=== PATIENT | female | born 2000 | race Caucasian/White ===

== ENCOUNTER 2020-12-19 17:00 | Inpatient (IN) | payer MEDICAID ==
[~2020-12-19] VITALS: Ht 160 cm; Wt 78.1 kg
[2020-12-20] VITALS (57 sets, daily range): BP systolic 80–127; BP diastolic 41–90
[2020-12-20] MEDS ORDERED: MINERAL OIL CONCENTRATE 99.9% 15 ML UDC TOP PRN (06:45)
[2020-12-20] MEDS ORDERED: OXYTOCIN PRE-MIX DRIP 500 ML IV SCH (06:45)
[2020-12-20 06:55] LABS: BILIRUBIN,URINE NEGATIVE (NEGATIVE); CLARITY,URINE SL CLOUDY; COLOR,URINE YELLOW; GLUCOSE, URINE (UA) NEGATIVE (NEGATIVE); KETONES,URINE NEGATIVE (NEGATIVE); LEUKOCYTE ESTERASE ,URINE TRACE (NEGATIVE); NITRITE,URINE NEGATIVE (NEGATIVE); PROTEIN,URINE NEGATIVE (NEGATIVE)
[2020-12-20 06:56] LABS: BASOPHILS % (AUTO) 0 % (0-10); EOSINOPHILS # (AUTO) 0.1 10^3/uL (0.0-0.3); EOSINOPHILS % (AUTO) 1 % (0-10); HEMATOCRIT 35 % (35-52); HEMOGLOBIN 11.6 g/dL (11.5-16.0); LYMPHOCYTES # (AUTO) 2.1 10^3/uL (1.0-4.0); LYMPHOCYTES % (AUTO) 21 % (12-44); MEAN CORPUSCULAR HEMOGLOBIN 29 pg (25-34); MEAN CORPUSCULAR HGB CONC 34 g/dL (32-36); MEAN CORPUSCULAR VOLUME 86 fL (80-99); MEAN PLATELET VOLUME 10.5 fL (9.0-12.2); MONOCYTES # (AUTO) 0.7 10^3/uL (0.0-1.0); MONOCYTES % (AUTO) 6 % (0-12); NEUTROPHILS # (AUTO) 7.3 10^3/uL (1.8-7.8); NEUTROPHILS % (AUTO) 71 % (42-75); PLATELET COUNT 236 10^3/uL (130-400); WHITE BLOOD COUNT 10.2 10^3/uL (4.3-11.0)
[2020-12-20 07:10] LABS: BACTERIA,URINE LARGE /HPF; RBC,URINE 0-2 /HPF
[2020-12-20] MEDS ORDERED: PREN1TAB79 PO (07:35)
[2020-12-20] MEDS ORDERED: METF-399 PO (07:35)
[2020-12-20] MEDS: LACTATED RINGERS 1,000 ML IV SCH ×2 (07:49→15:44)
[2020-12-20] MEDS ORDERED: PNV11TAB5 PO (07:54)
--- NOTE | 2020-12-20 07:57 | History & Physical-OB ---
OB - Chief Complaint & HPI Date/Time Date of Admission: Date of Admission: Dec 20, 2020 at 05:58 Date seen by a Provider: Dec 20, 2020 Time Seen by a Provider: 09:45 Chief Complaint/History OB-Reason for Admission/Chief: Obstetrical Complication Hx : 1 Hx Para: 0 Gestational Age in Weeks: 37 Gestational Age in Days: 5 Indication for induction: medical complication Other reason for admission: G1 with gestational diabetes and polyhydramnios, seen by MFM and recommended IOL at 37 weeks. Allergies and Home Medications Allergies Coded Allergies: No Known Drug Allergies (Unverified , 12/20/20) Home Medications Metformin HCl 1,000 Mg Tablet, 1,000 MG PO DAILY, (Reported) Last Action: New Order Cpf860/FA/Omega3/Dha/Fish Oil 1 Each Tab.chew, 2 EACH PO DAILY, (Reported) Last Action: New Order Patient Home Medication List Home Medication List Reviewed: Yes OB - History Hx of Present Care: Yes Ultrasounds: Abnormal US findings (polyhydramnios) Obstetrical Complications: Gestational Diabetes Information Induced Hypertension: No Maternal Gestational Diabetes: Yes Hemorrhage: No Obstetrical History Hx : 1 Hx Para: 0 Hx # Term Pregnancies: 0 Hx # Pregnancies: 0 Number of Living Children: 0 Hx Multiple Gestation: No Hx Ectopic : No Hx Stillbirth: No Hx Complication: Yes Hx Induced Hypertens: No Hx Maternal Gestational Diabet: Yes Hx Hemorrhage: No Delivery History Hx Dystocia: No Hx Forceps Assisted Delivery: No Hx Vacuum Extraction Assisted: No Hx Placenta Abnormality: No Hx Distress: No Hx Large For Gestational Age I: No Hx Small for Gestational Age I: No Hx Section: No Hx Vaginal Delivery Post C-Sec: No Hx Blood Disorders: No Adverse Rxn to Tranfusion: No Patient Past Medical History PMHx: Depression SurgHx: Denies Social History/Family History Alcohol Use: Denies Use Recreational Drug Use: Yes (history of prior to , methamphetamine, 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) Smoking Cessation: Current every day smoker Immunizations Rubella: immune RPR/VDRL: Negative GBS Status: Negative HBsAG: Negative OB - Admission Exam Physical Exam Vitals: Vital Signs 12/20/20 06:52 Temp 36.7 Pulse 87 Resp 18 Pulse Ox 97 O2 Delivery Room Air HEENT: NCAT Abdomen: Non tender Extremities: Normal Cervical Dilatation: 4cm Effacement: 50% Station: -3 Membranes: Intact Heart Rate: 140's Accelerations: Accelerations Present Decelerations: No Decelerations Short Term Variability: Present Ink Maker Variability: Average (6-25) Contractions on Admission: None Williamson Scoring Tool (Modified) Dilation (cm): 3-4cm (2) Effacement (%): 31-51% (1) Descent/Station: -3 (0) Cervix Consistency: Soft (2) Cervix Position: Middle/Mid-Position (1) Subtract 1 point for: Nulliparity (-1) Williamson Score: 5 Labs Laboratory Tests Test 12/20/20 06:25 12/20/20 06:34 Range/Units Urine Color YELLOW Urine Clarity SL CLOUDY Urine pH 6.0 5-9 Urine Specific [place] 1.025 H 1.016-1.022 Urine Protein NEGATIVE NEGATIVE Urine Glucose (UA) NEGATIVE NEGATIVE Urine Ketones NEGATIVE NEGATIVE Urine Nitrite NEGATIVE NEGATIVE Urine Bilirubin NEGATIVE NEGATIVE Urine Urobilinogen 0.2 < = 1.0 MG/DL Urine Leukocyte Esterase TRACE H NEGATIVE Urine RBC (Auto) NEGATIVE NEGATIVE Urine RBC 0-2 /HPF Urine WBC 2-5 /HPF Urine Squamous Epithelial Cells 10-25 H /HPF Urine Crystals NONE /LPF Urine Bacteria LARGE H /HPF Urine Casts NONE /LPF Urine Mucus NEGATIVE /LPF Urine Culture Indicated YES White Blood Count 10.2 4.3-11.0 10^3/uL Red Blood Count 4.00 3.80-5.11 10^6/uL Hemoglobin 11.6 11.5-16.0 g/dL Hematocrit 35 35-52 % Mean Corpuscular Volume 86 80-99 fL Mean Corpuscular Hemoglobin 29 25-34 pg Mean Corpuscular Hemoglobin Concent 34 32-36 g/dL Red Cell Distribution Width 13.9 10.0-14.5 % Platelet Count 236 130-400 10^3/uL Mean Platelet Volume 10.5 9.0-12.2 fL Immature Granulocyte % (Auto) 1 % Neutrophils (%) (Auto) 71 42-75 % Lymphocytes (%) (Auto) 21 12-44 % Monocytes (%) (Auto) 6 0-12 % Eosinophils (%) (Auto) 1 0-10 % Basophils (%) (Auto) 0 0-10 % Neutrophils # (Auto) 7.3 1.8-7.8 10^3/uL Lymphocytes # (Auto) 2.1 1.0-4.0 10^3/uL Monocytes # (Auto) 0.7 0.0-1.0 10^3/uL Eosinophils # (Auto) 0.1 0.0-0.3 10^3/uL Basophils # (Auto) 0.0 0.0-0.1 10^3/uL Immature Granulocyte # (Auto) 0.1 0.0-0.1 10^3/uL Glucose Level 101 70-105 MG/DL OB - Assessment/Plan/Diagnosis Assessment Admission Dx Term intrauterine at 37 weeks Gestational diabetes oral medication controlled Polyhydramnios GBS negative Admission Status: Inpatient Order (span 2 midnights) Reason for Inpatient Admission: Labor, delivery and course Plan Plan: Induction Induction Method: per Pitocin Protocol Problems: (1) Gestational diabetes Assessment & Plan: Controlled on metformin 1000 mg daily, seen by MFM and recommended IOl at 37-38 weeks due to GDM with polyhydramnios. Qualifiers: Qualified Codes: O24.415 - Gestational diabetes mellitus in , controlled by oral hypoglycemic drugs (2) Polyhydramnios Assessment & Plan: Seen by MFM, anatomy US okay, suspect due to GDM, recommended IOL at 37-38 weeks. Qualifiers: Qualified Codes: O40.3XX0 - Polyhydramnios, third trimester, not applicable or unspecified (3) Rh negative status during REBECCA PIERRE MD Dec 20, 2020 07:57
[2020-12-20] MEDS ORDERED: CALCIUM CARBONATE 500 MG (TUMS) TAB.CHEW PO PRN (08:15)
[2020-12-20] MEDS ORDERED: fentaNYL 2 mcg/ml BUPIVA 0.125 100 ML ONE (08:31)
[2020-12-20] MEDS ORDERED: BUPIVACAINE 0.25% 30 ML (SENSORCAINE) VIAL ONE (09:07)
[2020-12-20] MEDS ORDERED: fentaNYL INJ 100 MCG/2 ML AMP ONE (09:08)
[2020-12-20] MEDS: EPIDURAL (fentaNYL 2 MCG/ML BUPIVA 0.125%)100 ML BAG EPI PRN ×2 (09:30→16:36)
[2020-12-20] MEDS ORDERED: fentaNYL INJ 100 MCG/2 ML AMP INJ ONE (09:45)
[2020-12-20] MEDS ORDERED: NALOXONE 0.4 MG/ML 1 ML (NARCAN) VIAL IV PRN (09:45)
[2020-12-20] MEDS ORDERED: LACTATED RINGERS 1,000 ML IV ONE ×2 (09:45)
[2020-12-20] MEDS ORDERED: ONDANSETRON 4 MG/2 ML (SDV) Z0FRAN IV PRN (09:45)
[2020-12-20] MEDS ORDERED: FAMOTIDINE 20MG/2ML IV (PEPCID) IVP ONE (10:00)
[2020-12-20] MEDS ORDERED: CATHETER FLUSH 10 ML SYR IV SCH ×2 (14:00→22:00)
--- NOTE | 2020-12-20 18:39 | OB Labor & Delivery Record ---
Vag Delivery Note Vag Delivery Note Date of Delivery: 12/20/20 Preoperative Diagnosis: Caridad trejo a (20 /Para 1 / 0, Gestational Age (wks)37with 5 days Postoperative Diagnosis: Same Surgeon: REBECCA PIERRE Student Support Services Director: ARA Ramirez Anesthesia: Epidural Delivery Type: Spontaneous vaginal delivery Findings: Viable female infant, apgars 8/8, weight pending Lacerations: bilateral periurethral abrasion, first degree perineal Intact placenta with 3 vessel cord. No nuchal cord, body cord or shoulder dystocia Estimated Blood Loss: 300 ml Complications: None Condition: Stable Description of Procedure: The patient is a 20 year old female who presented for induction of labor for gestational diabetes and polyhydramnios. She was admitted and informed consent was obtained. Her labor course was unremarkable. She progressed to complete dilatation and began to push. She was then set up for delivery. The 's head was delivered atraumatically in the OA position. The shoulders and remainder of the infant's body were then delivered without difficulty. Upon delivery, the was vigorous and placed on maternal abdomen. After a delay the cord was doubly clamped and cut and the was handed off to the pediatric staff. An intact placenta with 3-vessel cord delivered via Ofe and there was found to be minimal bleeding.~ Vigorous fundal massage was performed and the fundus was found to be firm. IV oxytocin was given. Examination of the vagina and perineum revealed a first degree laceration repaired in the usual fashion with 3-0 vicryl rapide suture. Following the repair, sponge, instrument and needle counts were correct. Mom and baby were both in stable condition in the labor suite. Vitals - Labs Vital Signs - I&O Vital Signs Date Time Temp Pulse Resp B/P (MAP) Pulse Ox O2 Delivery O2 Flow Rate FiO2 12/20/20 17:30 65 18 116/74 (88) Room Air 12/20/20 17:15 36.2 76 18 122/79 (93) Room Air 12/20/20 17:00 81 18 113/61 (78) Room Air 12/20/20 16:45 74 18 107/56 (73) Room Air 12/20/20 16:30 36.6 62 18 114/69 (84) Room Air 12/20/20 16:15 68 18 116/74 (88) 99 Room Air 12/20/20 16:00 72 18 112/69 (83) 97 Room Air 12/20/20 15:45 68 18 119/75 (90) 96 Room Air 12/20/20 15:30 66 18 113/73 (86) 97 Room Air 12/20/20 15:15 35.8 64 18 119/80 (93) 98 Room Air 12/20/20 15:00 63 18 112/72 (85) 98 Room Air 12/20/20 14:45 36.1 63 18 110/71 (84) 97 Room Air 12/20/20 14:30 62 18 111/69 (83) 96 Room Air 12/20/20 14:15 74 18 110/71 (84) 97 Room Air 12/20/20 14:00 63 18 109/73 (85) 97 Room Air 12/20/20 13:45 60 18 111/70 (84) 99 Room Air 12/20/20 13:30 65 18 114/65 (81) 98 Room Air 12/20/20 13:15 36.1 65 18 122/73 (89) 98 Room Air 12/20/20 13:00 62 18 105/65 (78) 97 Room Air 12/20/20 12:45 35.6 67 18 103/64 (77) 97 Room Air 12/20/20 12:30 70 18 109/65 (80) 97 Room Air 12/20/20 12:15 68 18 100/65 (77) 97 Room Air 12/20/20 12:00 65 18 112/62 (79) 95 Room Air 12/20/20 11:45 72 18 105/63 (77) 96 Room Air 12/20/20 11:30 68 18 103/68 (80) 96 Room Air 12/20/20 11:15 70 18 101/64 (76) 97 Room Air 12/20/20 11:00 80 18 103/65 (78) 96 Room Air 12/20/20 10:45 35.8 66 18 101/66 (78) 98 Room Air 12/20/20 10:30 81 18 80/41 (54) 99 Room Air 12/20/20 10:15 71 18 98/55 (69) 98 Room Air 12/20/20 10:00 88 18 91/52 (65) 98 Room Air 12/20/20 09:45 80 18 116/75 (89) 98 Room Air 12/20/20 09:30 36.2 79 18 109/60 (76) 98 Room Air 12/20/20 09:25 101 18 109/65 (80) 99 Room Air 12/20/20 09:21 105 18 126/85 (99) 100 Room Air 12/20/20 09:19 118 18 123/84 (97) 100 Room Air 12/20/20 09:17 114 18 125/90 (102) 100 Room Air 12/20/20 09:15 18 100 Room Air 12/20/20 09:13 105 18 119/79 (92) 100 Room Air 12/20/20 09:00 77 18 111/65 (80) Room Air 12/20/20 08:45 81 18 105/65 (78) Room Air 12/20/20 08:30 79 18 114/67 (83) Room Air 12/20/20 08:15 80 18 109/69 (82) Room Air 12/20/20 08:00 35.8 68 18 124/84 (97) Room Air 12/20/20 06:52 36.7 87 18 97 Room Air Labs Laboratory Tests 12/20/20 06:25: Urine Color YELLOW, Urine Clarity SL CLOUDY, Urine pH 6.0, Urine Specific [place] 1.025H, Urine Protein NEGATIVE, Urine Glucose (UA) NEGATIVE, Urine Ketones NEGATIVE, Urine Nitrite NEGATIVE, Urine Bilirubin NEGATIVE, Urine Urobilinogen 0.2, Urine Leukocyte Esterase TRACEH, Urine RBC (Auto) NEGATIVE, Urine RBC 0-2, Urine WBC 2-5, Urine Squamous Epithelial Cells 10-25H, Urine Crystals NONE, Urine Bacteria LARGEH, Urine Casts NONE, Urine Mucus NEGATIVE, Urine Culture Indicated YES 12/20/20 06:34: White Blood Count 10.2, Red Blood Count 4.00, Hemoglobin 11.6, Hematocrit 35, Mean Corpuscular Volume 86, Mean Corpuscular Hemoglobin 29, Mean Corpuscular Hemoglobin Concent 34, Red Cell Distribution Width 13.9, Platelet Count 236, Mean Platelet Volume 10.5, Immature Granulocyte % (Auto) 1, Neutrophils (%) (Auto) 71, Lymphocytes (%) (Auto) 21, Monocytes (%) (Auto) 6, Eosinophils (%) (Auto) 1, Basophils (%) (Auto) 0, Neutrophils # (Auto) 7.3, Lymphocytes # (Auto) 2.1, Monocytes # (Auto) 0.7, Eosinophils # (Auto) 0.1, Basophils # (Auto) 0.0, Immature Granulocyte # (Auto) 0.1, Glucose Level 101 REBECCA PIERRE MD Dec 20, 2020 18:39
[2020-12-20] MEDS: OXYTOCIN PRE-MIX DRIP 500 ML IV SCH ×2 (19:04→19:20)
[2020-12-20] MEDS ORDERED: TETANUS,DIPTH,PERTUSS P/F (BOOSTRIX) 0.5 ML VIAL IM ONE (19:15)
[2020-12-20] MEDS ORDERED: BENZOCAINE/MENTHOL (DERMOPLAST) 56 ML CAN TP PRN (19:15)
[2020-12-20] MEDS ORDERED: WITCH HAZEL(TUCKS) 40 EA JAR TOP PRN (19:15)
[2020-12-20] MEDS: IBUPROFEN 600 MG (MOTRIN) TAB PO SCH (19:20)
[2020-12-21 02:24] VITALS: BP 123/66
[2020-12-21] MEDS: IBUPROFEN 600 MG (MOTRIN) TAB PO SCH ×4 (02:24→20:50)
[2020-12-21 05:50] VITALS: BP 110/57
[2020-12-21 06:25] LABS: BASOPHILS % (AUTO) 0 % (0-10); EOSINOPHILS # (AUTO) 0.1 10^3/uL (0.0-0.3); EOSINOPHILS % (AUTO) 0 % (0-10); HEMATOCRIT 31 % (35-52); HEMOGLOBIN 10.2 g/dL (11.5-16.0); LYMPHOCYTES % (AUTO) 18 % (12-44); MEAN CORPUSCULAR HEMOGLOBIN 29 pg (25-34); MEAN CORPUSCULAR HGB CONC 33 g/dL (32-36); MEAN CORPUSCULAR VOLUME 87 fL (80-99); MEAN PLATELET VOLUME 10.6 fL (9.0-12.2); MONOCYTES # (AUTO) 0.9 10^3/uL (0.0-1.0); MONOCYTES % (AUTO) 8 % (0-12); NEUTROPHILS # (AUTO) 8.4 10^3/uL (1.8-7.8); NEUTROPHILS % (AUTO) 74 % (42-75); PLATELET COUNT 176 10^3/uL (130-400); WHITE BLOOD COUNT 11.4 10^3/uL (4.3-11.0)
[2020-12-21] MEDS ORDERED: FERR325T18 PO (07:09)
[2020-12-21] MEDS ORDERED: IBUP-844 PO (07:09)
[2020-12-21] MEDS ORDERED: DCS100C PO (07:09)
[2020-12-21 08:15] VITALS: BP 114/70
--- NOTE | 2020-12-21 11:16 | Progress Note ---
Subjective Subjective/Events-last exam Afebrile, denies chest pain, shortness of breath or dizziness. Objective Exam Last Set of Vital Signs Vital Signs Date Time Temp Pulse Resp B/P (MAP) Pulse Ox O2 Delivery O2 Flow Rate FiO2 12/21/20 08:15 37.0 73 18 114/70 (85) Room Air 12/21/20 05:50 98 Capillary Refill : Less Than 3 Seconds I&O Intake and Output 12/21/20 00:00 Intake Total 3900 ml Balance 3900 ml Intake IV Total 3900 ml Daily Weight Change No General: Alert, No Acute Distress Lungs: Clear to Auscultation, Normal Air Movement Heart: Regular Rate, No Murmurs Extremities: No Edema Results/Procedures Lab Laboratory Tests 12/20/20 19:17: Glucometer 71 12/21/20 06:09: White Blood Count 11.4H, Red Blood Count 3.56L, Hemoglobin 10.2L, Hematocrit 31L , Mean Corpuscular Volume 87, Mean Corpuscular Hemoglobin 29, Mean Corpuscular Hemoglobin Concent 33, Red Cell Distribution Width 13.9, Platelet Count 176, Mean Platelet Volume 10.6, Immature Granulocyte % (Auto) 0, Neutrophils (%) (Auto) 74, Lymphocytes (%) (Auto) 18, Monocytes (%) (Auto) 8, Eosinophils (%) (Auto) 0, Basophils (%) (Auto) 0, Neutrophils # (Auto) 8.4H, Lymphocytes # (Auto) 2.0, Monocytes # (Auto) 0.9, Eosinophils # (Auto) 0.1, Basophils # (Auto) 0.0, Immature Granulocyte # (Auto) 0.1 Assessment/Plan Assessment/Plan (1) Status post vaginal delivery Status: Acute Assessment & Plan: Routine care (2) anemia Status: Acute Assessment & Plan: Asymptomatic, ferrous sulfate daily. (3) Acute blood loss anemia Status: Acute (4) Gestational diabetes Status: Resolved Assessment & Plan: Discussed need for repeat testing and annually. Qualifiers: Qualified Codes: O24.415 - Gestational diabetes mellitus in , controlled by oral hypoglycemic drugs REBECCA PIERRE MD Dec 21, 2020 11:16
--- NOTE | 2020-12-21 12:10 | Anesthesia-Regional Post-Op ---
Regional Patient Condition Mental Status: Alert, Oriented x3 Circulation: Same as Pre-Op Headache: Absent Sensation: Full Recovery Motor Block: Absent Post Op Complications Complications None Follow Up Care/Instructions Patient Instructions None needed. Anesthesia/Patient Condition Patient is doing well, no complaints, stable vital signs, no apparent adverse anesthesia problems. No complications reported per nursing. DANIELLE BARAHONA CRNA Dec 21, 2020 12:10
[2020-12-21 13:45] VITALS: BP 109/57
[2020-12-21 16:44] VITALS: BP 110/58
[2020-12-21 20:45] VITALS: BP 109/67
[2020-12-21] MEDS: DOCUSATE SODIUM 100 MG (COLACE) CAP PO SCH (20:49)
[2020-12-22 01:00] VITALS: BP 114/73
[2020-12-22] MEDS: IBUPROFEN 600 MG (MOTRIN) TAB PO SCH ×2 (01:53→09:31)
[2020-12-22] MEDS ORDERED: FERROUS SULF 325 MG (IRON) TAB PO SCH (07:00)
--- NOTE | 2020-12-22 07:19 | Discharge Summary ---
Discharge Summary Hospital Course Problems/Diagnosis: (1) Status post vaginal delivery Status: Acute Assessment & Plan: Routine care (2) anemia Status: Acute Assessment & Plan: Asymptomatic, ferrous sulfate daily. (3) Acute blood loss anemia Status: Acute (4) Gestational diabetes Status: Resolved Resolution Date/Time: 12/21/20 @ 11:15 Assessment & Plan: Discussed need for repeat testing and annually. Qualifiers: Qualified Codes: O24.415 - Gestational diabetes mellitus in , controlled by oral hypoglycemic drugs Hospital Course Date of Admission: Dec 20, 2020 at 05:58 Admission Diagnosis : Family Physician/Provider: Rebecca Hwang MD Date of Discharge: 12/22/20 Discharge Diagnosis: See problem list Hospital Course: Patient admitted for induction of labor due to gestational diabetes on metformin and mild polyhydramnios at 37 weeks. Unremarkable labor and delivery. Labs and Pending Lab Test: Microbiology 12/20/20 Urine Culture - Final, Complete >=3 Gram Positive Isolates Home Meds Active Dok (Docusate Sodium) 100 Mg Capsule 100 Mg PO BID Ferrous Sulfate 325 Mg Tablet 325 Mg PO DAILY Ibu (Ibuprofen) 600 Mg Tablet 600 Mg PO Q6H PRN Reported Gummies (Bwu539/FA/Omega3/Dha/Fish Oil) 1 Each Tab.chew 2 Each PO DAILY Metformin HCl 1,000 Mg Tablet 1,000 Mg PO DAILY Assessment/Pt DC Instructions Follow up in [address] Hwang for visit. Discharge Diet: No Restrictions Activity as Tolerated: Yes (avoid strenuous activity x 6 weeks) Discharge Physical Examination Allergies: Coded Allergies: No Known Drug Allergies (Unverified , 12/20/20) General Appearance: No Apparent Distress, WD/WN Respiratory: Lungs Clear, Normal Breath Sounds Cardiovascular: Regular Rate, Rhythm, No Edema, No Murmur Skin: Normal Color, Warm/Dry Neurologic/Psychiatric: Alert, Normal Mood/Affect REBECCA HWANG MD Dec 22, 2020 07:19
[2020-12-22 09:25] VITALS: BP 115/72
[2020-12-22] MEDS: DOCUSATE SODIUM 100 MG (COLACE) CAP PO SCH (09:31)
[2020-12-22 10:48] VITALS: BP 115/72
== END 2020-12-22 14:40 | disposition home or self-care (01) | DRG 806 ==
LOC: LDRP 12-20 05:58
PROVIDERS: ADMIT Family Medicine; ATTEND Family Medicine
PROC: 10E0XZZ Delivery of Products of Conception, External Approach (ICD-10-PCS; principal; 2020-12-20)
PROC: 0HQ9XZZ Repair Perineum Skin, External Approach (ICD-10-PCS; 2020-12-20)
DX: O24.425 Gestational diabetes mellitus in childbirth, controlled by oral hypoglycemic drugs (principal); D62 Acute posthemorrhagic anemia; Z37.0 Single live birth; O40.3XX0 Polyhydramnios, third trimester, not applicable or unspecified; O90.81 Anemia of the puerperium; Z3A.37 37 weeks gestation of pregnancy
CPT/HCPCS: 36415; 81000; 82947; 83033; 85025; 86850; 86900; 86901; 87088

== ENCOUNTER → 2022-04-18 | Emergency (ER) | payer MEDICAID ==
[~2022-04-18] MED LIST: DOCU-239 PO; FERR325T18 PO; IBUP-844 PO; METF-399 PO; PNV11TAB5 PO; PREN1TAB79 PO
[2022-04-18 23:52] VITALS: BP 126/77
--- NOTE | 2022-04-18 23:53 | ED Abdominal Pain ---
General Stated Complaint: SHARP ABD PAIN History of Present Illness Date Seen by Provider: Apr 18, 2022 Time Seen by Provider: 23:52 (RUBEN GIBSON MD) Allergies and Home Medications Allergies Coded Allergies: No Known Drug Allergies (Unverified , 12/20/20) Patient Home Medication List Docusate Sodium (Dok) 100 Mg Capsule, 100 MG PO BID Prescribed by: REBECCA PIERRE on 12/21/20 0709 Ferrous Sulfate (Ferrous Sulfate) 325 Mg Tablet, 325 MG PO DAILY Prescribed by: REBECCA PIERRE on 12/21/20 0709 Ibuprofen (Ibu) 600 Mg Tablet, 600 MG PO Q6H PRN for PAIN-MODERATE (5-7) Prescribed by: REBECCA PIERRE on 12/21/20 0709 Xbl848/FA/Omega3/Dha/Fish Oil ( Gummies) 1 Each Tab.chew, 2 EACH PO DAILY, (Reported) Entered as Reported by: LAURIE BOYLE on 12/20/20 0754 Past Rzfezlm-Tuklff-Hbeagk Hx Past Medical History Adverse Reaction/Blood Tranf: No (RUBEN GIBSON MD) Physical Exam Vital Signs Capillary Refill : (RUBEN GIBSON MD) Height/Weight/BMI Height: '" Weight: lbs. oz. kg; 30.50 BMI Method: (RUBEN GIBSON MD) Progress/Results/Core Measures Results/Orders Lab Results Laboratory Tests Test 04/18/22 23:50 04/18/22 23:51 Range/Units Urine Color YELLOW Urine Clarity CLEAR Urine pH 7.0 5-9 Urine Specific [place] 1.025 H 1.016-1.022 Urine Protein NEGATIVE NEGATIVE Urine Glucose (UA) NEGATIVE NEGATIVE Urine Ketones NEGATIVE NEGATIVE Urine Nitrite NEGATIVE NEGATIVE Urine Bilirubin NEGATIVE NEGATIVE Urine Urobilinogen 1.0 < = 1.0 MG/DL Urine Leukocyte Esterase NEGATIVE NEGATIVE Urine RBC (Auto) NEGATIVE NEGATIVE Urine RBC NONE /HPF Urine WBC 0-2 /HPF Urine Squamous Epithelial Cells 5-10 /HPF Urine Crystals NONE /LPF Urine Bacteria FEW H /HPF Urine Casts NONE /LPF Urine Mucus NEGATIVE /LPF Urine Culture Indicated YES Urine Test POSITIVE NEGATIVE Urine Opiates Screen NEGATIVE NEGATIVE Urine Oxycodone Screen NEGATIVE NEGATIVE Urine Methadone Screen NEGATIVE NEGATIVE Urine Propoxyphene Screen NEGATIVE NEGATIVE Urine Barbiturates Screen NEGATIVE NEGATIVE Ur Tricyclic Antidepressants Screen NEGATIVE NEGATIVE Urine Phencyclidine Screen NEGATIVE NEGATIVE Urine Amphetamines Screen NEGATIVE NEGATIVE Urine Methamphetamines Screen NEGATIVE NEGATIVE Urine Benzodiazepines Screen NEGATIVE NEGATIVE Urine Cocaine Screen NEGATIVE NEGATIVE Urine Cannabinoids Screen NEGATIVE NEGATIVE Lab Scanned Report Referred Lab Report [id number] () Micro Results Microbiology 04/18/22 Urine Culture - Final, Complete Lactobacillus jensenii () Departure Departure-Patient Inst. Referrals: NO,LOCAL PHYSICIAN (PCP/Family) Primary Care Physician RUBEN GIBSON MD Apr 18, 2022 23:52 JulMay 01, 2022 13:03
[2022-04-19 00:45] LABS: BILIRUBIN,URINE NEGATIVE (NEGATIVE); CLARITY,URINE CLEAR; COLOR,URINE YELLOW; GLUCOSE, URINE (UA) NEGATIVE (NEGATIVE); KETONES,URINE NEGATIVE (NEGATIVE); LEUKOCYTE ESTERASE ,URINE NEGATIVE (NEGATIVE); NITRITE,URINE NEGATIVE (NEGATIVE); PROTEIN,URINE NEGATIVE (NEGATIVE)
[2022-04-19 01:03] LABS: AMPHETAMINE SCREEN, URINE NEGATIVE (NEGATIVE); BARBITURATE SCREEN URINE NEGATIVE (NEGATIVE); BENZODIAZEPINES SCREEN URINE NEGATIVE (NEGATIVE); CANNABINOID SCREEN, URINE NEGATIVE (NEGATIVE); COCAINE SCREEN URINE NEGATIVE (NEGATIVE); HCG,QUALITATIVE URINE POSITIVE (NEGATIVE); METHADONE STAT NEGATIVE (NEGATIVE); OPIATE SCREEN URINE NEGATIVE (NEGATIVE); OXYCODONE STAT NEGATIVE (NEGATIVE); PROPOXYPHENE STAT NEGATIVE (NEGATIVE); TRICYCLIC ANTIDEPRESSANTS SCRE NEGATIVE (NEGATIVE)
[2022-04-19 01:30] LABS: BACTERIA,URINE FEW /HPF; WBC,URINE 0-2 /HPF
== END ==
LOC: EDUNIT# 23:47 → ER 23:51
DX: R10.9 Unspecified abdominal pain (principal); Z28.311 Partially vaccinated for COVID-19
CPT/HCPCS: 80306; 81000; 84703; 87088; 99281

== ENCOUNTER → 2022-07-13 | Outpatient (CLI) | payer MEDICAID ==
[2022-07-13 14:47] LABS: BASOPHILS % (AUTO) 0 % (0-10); EOSINOPHILS % (AUTO) 1 % (0-10); HEMATOCRIT 37 % (35-52); HEMOGLOBIN 12.8 g/dL (11.5-16.0); LYMPHOCYTES # (AUTO) 1.9 10^3/uL (1.0-4.0); LYMPHOCYTES % (AUTO) 21 % (12-44); MEAN CORPUSCULAR HEMOGLOBIN 30 pg (25-34); MEAN CORPUSCULAR HGB CONC 35 g/dL (32-36); MEAN CORPUSCULAR VOLUME 87 fL (80-99); MEAN PLATELET VOLUME 9.2 fL (9.0-12.2); MONOCYTES # (AUTO) 0.3 10^3/uL (0.0-1.0); MONOCYTES % (AUTO) 4 % (0-12); NEUTROPHILS # (AUTO) 6.6 10^3/uL (1.8-7.8); NEUTROPHILS % (AUTO) 74 % (42-75); PLATELET COUNT 277 10^3/uL (130-400); WHITE BLOOD COUNT 8.9 10^3/uL (4.3-11.0)
== END ==
LOC: LAB 13:53
PROVIDERS: ATTEND Family Medicine
DX: Z34.91 Encounter for supervision of normal pregnancy, unspecified, first trimester (principal)
CPT/HCPCS: 36415; 84443; 85025; 86850; 86900; 86901; 87340; 87389

== ENCOUNTER → 2022-10-26 | Outpatient (CLI) | payer MEDICAID ==
[2022-10-26 15:48] LABS: BASOPHILS % (AUTO) 0 % (0-10); EOSINOPHILS % (AUTO) 0 % (0-10); HEMATOCRIT 30 % (35-52); HEMOGLOBIN 10.3 g/dL (11.5-16.0); LYMPHOCYTES # (AUTO) 1.5 10^3/uL (1.0-4.0); LYMPHOCYTES % (AUTO) 16 % (12-44); MEAN CORPUSCULAR HEMOGLOBIN 30 pg (25-34); MEAN CORPUSCULAR HGB CONC 34 g/dL (32-36); MEAN CORPUSCULAR VOLUME 89 fL (80-99); MEAN PLATELET VOLUME 9.6 fL (9.0-12.2); MONOCYTES # (AUTO) 0.4 10^3/uL (0.0-1.0); MONOCYTES % (AUTO) 5 % (0-12); NEUTROPHILS # (AUTO) 7.1 10^3/uL (1.8-7.8); NEUTROPHILS % (AUTO) 77 % (42-75); PLATELET COUNT 220 10^3/uL (130-400); WHITE BLOOD COUNT 9.2 10^3/uL (4.3-11.0)
[2022-10-26 20:48] LABS: HEPATITIS C ANTIBODY C Non-Reactive (Non-Reactive)
== END ==
LOC: LAB 15:16
PROVIDERS: ATTEND Family Medicine
DX: O26.899 Other specified pregnancy related conditions, unspecified trimester (principal); Z3A.00 Weeks of gestation of pregnancy not specified
CPT/HCPCS: 36415; 82947; 85025; 86762; 86780; 86803; 86850

== ENCOUNTER 2022-12-04 06:00 | Inpatient (IN) | payer MEDICAID ==
[~2022-12-04] VITALS: Ht 162.6 cm; Wt 77.4 kg
[2022-12-07] VITALS (71 sets, daily range): BP systolic 82–131; BP diastolic 46–81
[2022-12-07] MEDS ORDERED: AMPICILLIN FOR IV USE 2,000 MG in NS (IVPB) 50 ML IV SCH (06:25)
[2022-12-07] MEDS ORDERED: D5 LR IV SOLUTION 0 ML IV ONE (06:25)
[2022-12-07] MEDS ORDERED: AMPICILLIN 2,000 MG/14.8 ML (IV USE) ONE (06:25)
[2022-12-07] MEDS ORDERED: NS (IVPB) 100 ML ONE (06:26)
[2022-12-07] MEDS ORDERED: OXYTOCIN PRE-MIX DRIP 500 ML IV SCH ×2 (06:30→20:15)
[2022-12-07] MEDS ORDERED: MINERAL OIL 30 ML UDC TOP PRN (06:30)
[2022-12-07] MEDS: NS IV 1000 ML 1,000 ML IV SCH ×2 (06:59→14:30)
--- NOTE | 2022-12-07 07:02 | History & Physical-OB ---
OB - Chief Complaint & HPI Date/Time Date of Admission: Date of Admission: Dec 07, 2022 at 06:22 Date seen by a Provider: Dec 07, 2022 Time Seen by a Provider: 08:40 Chief Complaint/History OB-Reason for Admission/Chief: Induction of Labor Hx : 2 Hx Para: 1 Expected Date of Delivery: Dec 17, 2022 Gestational Age in Weeks: 38 Gestational Age in Days: 4 Indication for induction: medical complication History of Labs AB negative, antibody neg, RI. HIV/HepB/RPR/HepC NR. GC/chlamydia neg. GBS pos. Other Weekly BPPs reassuring, growth on 11/23 EFW 2824, 38% LMP Allergies and Home Medications Allergies Coded Allergies: No Known Drug Allergies (Unverified , 12/20/20) Patient Home Medication List Home Medication List Reviewed: Yes Ferrous Sulfate (Ferrous Sulfate) 325 Mg Tablet, 325 MG PO DAILY Prescribed by: REBECCA PIERRE on 12/21/20 0709 Last Action: Reviewed Metformin HCl (Metformin HCl) 500 Mg Tablet, 500 MG PO BID, (Reported) Entered as Reported by: REBECCA PIERRE on 12/07/22 1305 Last Action: Reviewed Rsy482/FA/Omega3/Dha/Fish Oil ( Gummies) 1 Each Tab.chew, 2 EACH PO DAILY, (Reported) Entered as Reported by: LAURIE BOYLE on 12/20/20 0754 Last Action: Reviewed Discontinued Medications Docusate Sodium (Dok) 100 Mg Capsule, 100 MG PO BID Prescribed by: REBECCA PIERRE on 12/21/20 0709 Last Action: Discontinued Ibuprofen (Ibu) 600 Mg Tablet, 600 MG PO Q6H PRN for PAIN-MODERATE (5-7) Prescribed by: REBECCA PIERRE on 12/21/20 0709 Last Action: Discontinued OB - History Hx of Present Care: Yes Ultrasounds: Normal mid trimester US Obstetrical Complications: Gestational Diabetes Information Induced Hypertension: No Maternal Gestational Diabetes: Yes Hemorrhage: No Obstetrical History Hx : 2 Hx Para: 1 Hx # Term Pregnancies: 1 Hx # Pregnancies: 0 Number of Living Children: 1 Hx Termination: No Hx Multiple Gestation: No Hx Ectopic : No Hx Stillbirth: No Hx Complication: Yes Hx Induced Hypertens: No Hx Maternal Gestational Diabet: Yes Hx Hemorrhage: No Delivery History Hx Dystocia: No Hx Forceps Assisted Delivery: No Hx Vacuum Extraction Assisted: No Hx Placenta Abnormality: No Hx Distress: No Hx Large For Gestational Age I: No Hx Small for Gestational Age I: No Hx Section: No Hx Vaginal Delivery Post C-Sec: No Hx Blood Disorders: No Adverse Rxn to Tranfusion: No Patient Past Medical History PMHx: Depression SurgHx: Denies Social History/Family History Alcohol Use: Denies Use Recreational Drug Use: No Smoking Cessation: Current some day smoker Immunizations Influenza Vaccine Up-to-Date: Yes; Up-to-Date (07/13/2022) First/Initial COVID19 Vaccine: 03/23/2021 Second COVID19 Vaccination: did not receive Tetanus Booster (TDap): Less than 5yrs (11/05/2020) Rubella: immune RPR/VDRL: Negative GBS Status: Positive HBsAG: Negative OB - Admission Exam Physical Exam HEENT: NCAT Cervical Dilatation: 3cm Effacement: 0% Station: Ballotable Heart Rate: 130's Accelerations: Accelerations Present Decelerations: No Decelerations Short Term Variability: Present Television Operator Variability: Average (6-25) Contractions on Admission: None Williamson Scoring Tool (Modified) Dilation (cm): 3-4cm (2) Effacement (%): 0-30% (0) Descent/Station: -3 (0) Cervix Consistency: Soft (2) Cervix Position: Middle/Mid-Position (1) Add 1 point for: Each previous vaginal delivery (1) (1) Williamson Score: 6 OB - Assessment/Plan/Diagnosis Assessment Admission Dx Term intrauterine at 38 weeks gestation Gestational diabetes, oral medication controlled GBS positive Admission Status: Inpatient Order (span 2 midnights) Reason for Inpatient Admission: Labor, delivery and course Plan Induction Method: per Pitocin Protocol Problems: (1) Gestational diabetes Assessment & Plan: Check glucose on admit, and as needed. Qualifiers: Qualified Codes: O24.415 - Gestational diabetes mellitus in , controlled by oral hypoglycemic drugs (2) Rh negative status during Assessment & Plan: Rhogam potpartum depending on blood type Qualifiers: Qualified Codes: O26.893 - Other specified related conditions, third trimester; Z67.91 - Unspecified blood type, rh negative (3) GBS (group B Streptococcus carrier), +RV culture, currently Assessment & Plan: REBECCA Watson MD Dec 07, 2022 07:02
[2022-12-07 07:16] LABS: BASOPHILS % (AUTO) 0 % (0-10); EOSINOPHILS % (AUTO) 0 % (0-10); HEMATOCRIT 33 % (35-52); HEMOGLOBIN 11.4 g/dL (11.5-16.0); LYMPHOCYTES # (AUTO) 1.5 10^3/uL (1.0-4.0); LYMPHOCYTES % (AUTO) 17 % (12-44); MEAN CORPUSCULAR HEMOGLOBIN 31 pg (25-34); MEAN CORPUSCULAR HGB CONC 34 g/dL (32-36); MEAN CORPUSCULAR VOLUME 90 fL (80-99); MEAN PLATELET VOLUME 10.2 fL (9.0-12.2); MONOCYTES # (AUTO) 0.6 10^3/uL (0.0-1.0); MONOCYTES % (AUTO) 6 % (0-12); NEUTROPHILS # (AUTO) 6.7 10^3/uL (1.8-7.8); NEUTROPHILS % (AUTO) 76 % (42-75); PLATELET COUNT 206 10^3/uL (130-400); WHITE BLOOD COUNT 8.9 10^3/uL (4.3-11.0)
[2022-12-07 07:18] LABS: CLARITY,URINE CLOUDY; COLOR,URINE YELLOW; GLUCOSE, URINE (UA) NEGATIVE (NEGATIVE); KETONES,URINE 1+ (NEGATIVE); LEUKOCYTE ESTERASE ,URINE 2+ (NEGATIVE); NITRITE,URINE NEGATIVE (NEGATIVE); PROTEIN,URINE TRACE (NEGATIVE)
[2022-12-07 07:34] LABS: BILIRUBIN,URINE 1+ (NEGATIVE); RBC,URINE RARE /HPF
[2022-12-07 07:35] LABS: BACTERIA,URINE LARGE /HPF
[2022-12-07] MEDS ORDERED: D5 LR IV SOLUTION 1,000 ML IV SCH (07:45)
[2022-12-07] MEDS ORDERED: fentaNYL 2 mcg/ml BUPIVA 0.125 100 ML ONE (09:04)
[2022-12-07] MEDS ORDERED: fentaNYL INJ 100 MCG/2 ML AMP ONE (09:58)
[2022-12-07] MEDS ORDERED: BUPIVACAINE 0.25% 10 ML (SENSORCAINE) VIAL ONE (09:58)
[2022-12-07] MEDS: fentaNYL 2 mcg/ml BUPIVA 0.125 100 ML EPI SCH ×2 (10:17→18:25)
[2022-12-07] MEDS: AMPICILLIN FOR IV USE 1,000 MG in NS (IVPB) 50 ML IV SCH ×3 (10:59→19:10)
[2022-12-07] MEDS ORDERED: LACTATED RINGERS 1,000 ML IV ONE ×2 (11:30)
[2022-12-07] MEDS ORDERED: NALOXONE 0.4 MG/ML 1 ML (NARCAN) VIAL IV PRN (11:30)
[2022-12-07] MEDS ORDERED: ONDANSETRON 4 MG/2 ML (SDV) Z0FRAN IV PRN (11:30)
--- NOTE | 2022-12-07 13:03 | Labor Progress Note ---
Labor Progress Note Labor Progress Note Date Seen by Provider: Dec 07, 2022 Time Seen by Provider: 12:45 Subjective: Pt denies complaints. Epidural is in place and working well for her. Objective: Cervical exam: Consistency: soft Position: anterior Presentation: vertex heart tones: 140 beats per minute, moderate variability, accels present, no decels Tocometer: 4 ctx/10 minutes Assessment/Plan: Caridad Sarmiento is a (22 /Para 2 / 1,Gestational Age (wks)38 here for induction of labor due to GDMA2. AROM done at time of exam with clear fluid return. CEFM/TOCO Continue pitocin Anesthesia: epidural Anticipate vaginal delivery. Vitals - Labs Vital Signs - I&O Vital Signs Date Time Temp Pulse Resp B/P (MAP) Pulse Ox O2 Delivery O2 Flow Rate FiO2 12/07/22 11:30 83 18 104/60 (75) 96 Room Air 12/07/22 11:25 94 18 96/60 (72) 94 Room Air 12/07/22 11:20 86 18 100/58 (72) 96 Room Air 12/07/22 11:15 90 18 99/60 (73) 96 Room Air 12/07/22 11:10 111 18 100/60 (73) 97 Room Air 12/07/22 11:05 98 18 90/54 (66) 96 Room Air 12/07/22 11:00 80 18 88/51 (63) 97 Room Air 12/07/22 10:55 69 18 91/53 (66) 98 Room Air 12/07/22 10:50 96 18 100/55 (70) 97 Room Air 12/07/22 10:45 97 18 97/55 (69) 96 Room Air 12/07/22 10:40 98 18 84/54 (64) 97 Room Air 12/07/22 10:35 99 18 91/53 (66) 97 Room Air 12/07/22 10:30 95 18 97/52 (67) 96 Room Air 12/07/22 10:25 93 18 99/58 (72) 96 Room Air 12/07/22 10:20 96 18 99/56 (70) 96 Room Air 12/07/22 10:18 98 18 106/72 (83) Room Air 12/07/22 10:17 88 18 104/68 (80) Room Air 12/07/22 10:15 90 18 110/72 (85) Room Air 12/07/22 10:10 95 18 114/75 (88) 98 Room Air 12/07/22 10:00 36.4 83 18 99/58 (72) 98 Room Air 12/07/22 09:30 84 18 95/57 (70) Room Air 12/07/22 09:15 88 18 96/57 (70) Room Air 12/07/22 09:00 36.3 92 18 96/59 (71) Room Air 12/07/22 08:45 96 18 108/56 (73) Room Air 12/07/22 08:30 112 18 96/59 (71) Room Air 12/07/22 08:15 101 18 95/55 (68) Room Air 12/07/22 08:00 115 18 94/56 (69) 96 Room Air 12/07/22 07:50 101 18 101/59 (73) Room Air 12/07/22 07:20 36.1 89 18 98/59 (72) Room Air 12/07/22 06:55 36.5 99 18 96 Room Air Labs Laboratory Tests 12/07/22 06:35: Urine Color YELLOW, Urine Clarity CLOUDY, Urine pH 6.0, Urine Specific [place] 1.025H, Urine Protein TRACEH, Urine Glucose (UA) NEGATIVE, Urine Ketones 1+H, Urine Nitrite NEGATIVE, Urine Bilirubin 1+H, Urine Urobilinogen 1.0, Urine Leukocyte Esterase 2+H, Urine RBC (Auto) NEGATIVE, Urine RBC RARE, Urine WBC 10- 25H, Urine Squamous Epithelial Cells 10-25H, Urine Crystals NONE, Urine Bacteria LARGEH, Urine Casts NONE, Urine Mucus NEGATIVE, Urine Culture Indicated YES 12/07/22 06:45: White Blood Count 8.9, Red Blood Count 3.69L, Hemoglobin 11.4L, Hematocrit 33L, Mean Corpuscular Volume 90, Mean Corpuscular Hemoglobin 31, Mean Corpuscular Hemoglobin Concent 34, Red Cell Distribution Width 15.6H, Platelet Count 206, Mean Platelet Volume 10.2, Immature Granulocyte % (Auto) 1, Neutrophils (%) (Auto) 76H, Lymphocytes (%) (Auto) 17, Monocytes (%) (Auto) 6, Eosinophils (%) (Auto) 0, Basophils (%) (Auto) 0, Neutrophils # (Auto) 6.7, Lymphocytes # (Auto) 1.5, Monocytes # (Auto) 0.6, Eosinophils # (Auto) 0.0, Basophils # (Auto) 0.0, Immature Granulocyte # (Auto) 0.0, Glucose Level 102, Syphilis Total Antibody Negative 12/07/22 08:38: Glucometer 143H 12/07/22 11:03: Glucometer 93 REBECCA PIERRE MD Dec 07, 2022 13:03
[2022-12-07] MEDS ORDERED: METF-397 PO (13:05)
[2022-12-07] MEDS ORDERED: CATHETER FLUSH 10 ML SYR IV SCH (14:00)
--- NOTE | 2022-12-07 17:47 | Labor Progress Note ---
Labor Progress Note Labor Progress Note Date Seen by Provider: Dec 07, 2022 Time Seen by Provider: 17:20 Subjective: Pt denies complaints. Objective: Cervical exam: /- Consistency: soft Position: anterior Presentation: vertex heart tones: 140 beats per minute, moderate variability, reactive Tocometer: 4 ctx/10 minutes Assessment/Plan: Caridad Sarmiento is a 22 /Para 2 / 1,Gestational Age (wks)36 here for induction of labor due to GDMA2. CEFM/TOCO Continue pitocin Anesthesia: Epidural Anticipate vaginal delivery. Vitals - Labs Vital Signs - I&O Vital Signs Date Time Temp Pulse Resp B/P (MAP) Pulse Ox O2 Delivery O2 Flow Rate FiO2 12/07/22 17:25 87 18 104/70 (81) 98 Room Air 12/07/22 17:10 81 18 111/72 (85) 97 Room Air 12/07/22 16:55 82 18 116/66 (83) 97 Room Air 12/07/22 16:40 97 18 99/59 (72) 98 Room Air 12/07/22 16:25 86 18 108/60 (76) 97 Room Air 12/07/22 16:10 36.2 85 18 104/57 (73) 97 Room Air 12/07/22 15:55 83 18 101/68 (79) 97 Room Air 12/07/22 15:40 80 18 87/50 (62) 97 Room Air 12/07/22 15:25 81 18 102/58 (73) 97 Room Air 12/07/22 15:10 90 18 100/59 (73) 96 Room Air 12/07/22 14:55 36.1 79 18 96/63 (74) 97 Room Air 12/07/22 14:40 78 18 98/56 (70) 97 Room Air 12/07/22 14:25 77 18 94/59 (71) 96 Room Air 12/07/22 14:10 87 18 91/57 (68) 96 Room Air 12/07/22 13:55 75 18 99/60 (73) 96 Room Air 12/07/22 13:40 103 18 89/55 (66) 96 Room Air 12/07/22 13:25 101 18 88/58 (68) 96 Room Air 12/07/22 13:10 96 18 101/61 (74) 96 Room Air 12/07/22 12:55 79 18 82/46 (58) 94 Room Air 12/07/22 12:40 77 18 82/50 (61) 94 Room Air 12/07/22 12:25 76 18 84/53 (63) 94 Room Air 12/07/22 12:10 36.6 88 18 87/53 (64) 94 Room Air 12/07/22 11:55 88 18 93/61 (72) 95 Room Air 12/07/22 11:35 92 18 97/56 (70) 95 Room Air 12/07/22 11:30 83 18 104/60 (75) 96 Room Air 12/07/22 11:25 94 18 96/60 (72) 94 Room Air 12/07/22 11:20 86 18 100/58 (72) 96 Room Air 12/07/22 11:15 90 18 99/60 (73) 96 Room Air 12/07/22 11:10 111 18 100/60 (73) 97 Room Air 12/07/22 11:05 98 18 90/54 (66) 96 Room Air 12/07/22 11:00 80 18 88/51 (63) 97 Room Air 12/07/22 10:55 69 18 91/53 (66) 98 Room Air 12/07/22 10:50 96 18 100/55 (70) 97 Room Air 12/07/22 10:45 97 18 97/55 (69) 96 Room Air 12/07/22 10:40 98 18 84/54 (64) 97 Room Air 12/07/22 10:35 99 18 91/53 (66) 97 Room Air 12/07/22 10:30 95 18 97/52 (67) 96 Room Air 12/07/22 10:25 93 18 99/58 (72) 96 Room Air 12/07/22 10:20 96 18 99/56 (70) 96 Room Air 12/07/22 10:18 98 18 106/72 (83) Room Air 12/07/22 10:17 88 18 104/68 (80) Room Air 12/07/22 10:15 90 18 110/72 (85) Room Air 12/07/22 10:10 95 18 114/75 (88) 98 Room Air 12/07/22 10:00 36.4 83 18 99/58 (72) 98 Room Air 12/07/22 09:30 84 18 95/57 (70) Room Air 12/07/22 09:15 88 18 96/57 (70) Room Air 12/07/22 09:00 36.3 92 18 96/59 (71) Room Air 12/07/22 08:45 96 18 108/56 (73) Room Air 12/07/22 08:30 112 18 96/59 (71) Room Air 12/07/22 08:15 101 18 95/55 (68) Room Air 12/07/22 08:00 115 18 94/56 (69) 96 Room Air 12/07/22 07:50 101 18 101/59 (73) Room Air 12/07/22 07:20 36.1 89 18 98/59 (72) Room Air 12/07/22 06:55 36.5 99 18 96 Room Air Labs Laboratory Tests 12/07/22 06:35: Urine Color YELLOW, Urine Clarity CLOUDY, Urine pH 6.0, Urine Specific [place] 1.025H, Urine Protein TRACEH, Urine Glucose (UA) NEGATIVE, Urine Ketones 1+H, Urine Nitrite NEGATIVE, Urine Bilirubin 1+H, Urine Urobilinogen 1.0, Urine Leukocyte Esterase 2+H, Urine RBC (Auto) NEGATIVE, Urine RBC RARE, Urine WBC 10- 25H, Urine Squamous Epithelial Cells 10-25H, Urine Crystals NONE, Urine Bacteria LARGEH, Urine Casts NONE, Urine Mucus NEGATIVE, Urine Culture Indicated YES 12/07/22 06:45: White Blood Count 8.9, Red Blood Count 3.69L, Hemoglobin 11.4L, Hematocrit 33L, Mean Corpuscular Volume 90, Mean Corpuscular Hemoglobin 31, Mean Corpuscular Hemoglobin Concent 34, Red Cell Distribution Width 15.6H, Platelet Count 206, Mean Platelet Volume 10.2, Immature Granulocyte % (Auto) 1, Neutrophils (%) (Auto) 76H, Lymphocytes (%) (Auto) 17, Monocytes (%) (Auto) 6, Eosinophils (%) (Auto) 0, Basophils (%) (Auto) 0, Neutrophils # (Auto) 6.7, Lymphocytes # (Auto) 1.5, Monocytes # (Auto) 0.6, Eosinophils # (Auto) 0.0, Basophils # (Auto) 0.0, Immature Granulocyte # (Auto) 0.0, Glucose Level 102, Syphilis Total Antibody Negative 6/8/23 08:38: Glucometer 143H 12/07/22 11:03: Glucometer 93 12/07/22 16:10: Glucometer 65L 12/07/22 17:20: Glucometer 96 REBECCA PIERRE MD Dec 07, 2022 17:47
--- NOTE | 2022-12-07 20:05 | OB Labor & Delivery Record ---
Vag Delivery Note Vag Delivery Note Date of Delivery: 12/07/22 Preoperative Diagnosis: Caridad trejo a (22 /Para 2 / 1, Gestational Age (wks)38with 4 days, complicated by GDMA2 Postoperative Diagnosis: Same Surgeon: REBECCA PIERRE Anesthesia: Epidural Delivery Type: Findings: Viable female , apgars 7/9, weight 6#9 Lacerations: none Intact placenta with 3 vessel cord. No nuchal cord, body cord or shoulder dystocia Estimated Blood Loss: 100 ml Complications: None Condition: Stable Description of Procedure: The patient is a 22 year old female who presented for induction of labor due to GDMA2. She was admitted and informed consent was obtained. Her labor course was unremarkable. She progressed to complete dilatation and began to push. She was then set up for delivery. The 's head was delivered atraumatically in the OA position. The shoulders and remainder of the infant's body were then delivered without difficulty. Upon delivery, the was vigorous and placed on maternal chest and the mouth and nares were bulb suctioned. After a delay cord was doubly clamped and cut and the infant remained on maternal chest. An intact placenta with 3-vessel cord delivered via Ofe and there was found to be minimal bleeding.~ Vigorous fundal massage was performed and the fundus was found to be firm. IV oxytocin was given. Examination of the vagina and perineum revealed no lacerations requiring repair. Following the delivery, sponge, instrument and needle counts were correct. Mom and baby were both in stable condition in the labor suite. Vitals - Labs Vital Signs - I&O Vital Signs Date Time Temp Pulse Resp B/P (MAP) Pulse Ox O2 Delivery O2 Flow Rate FiO2 12/07/22 19:10 77 18 112/73 (86) 99 Room Air 12/07/22 18:55 83 18 109/71 (84) 99 Room Air 12/07/22 18:40 81 18 111/72 (85) 99 Room Air 12/07/22 18:25 88 18 111/70 (84) 99 Room Air 12/07/22 18:10 36.3 95 18 116/69 (85) 100 Room Air 12/07/22 17:55 88 18 114/61 (78) 96 Room Air 12/07/22 17:40 86 18 117/66 (83) 99 Room Air 12/07/22 17:25 87 18 104/70 (81) 98 Room Air 12/07/22 17:10 81 18 111/72 (85) 97 Room Air 12/07/22 16:55 82 18 116/66 (83) 97 Room Air 12/07/22 16:40 97 18 99/59 (72) 98 Room Air 12/07/22 16:25 86 18 108/60 (76) 97 Room Air 12/07/22 16:10 36.2 85 18 104/57 (73) 97 Room Air 12/07/22 15:55 83 18 101/68 (79) 97 Room Air 12/07/22 15:40 80 18 87/50 (62) 97 Room Air 12/07/22 15:25 81 18 102/58 (73) 97 Room Air 12/07/22 15:10 90 18 100/59 (73) 96 Room Air 12/07/22 14:55 36.1 79 18 96/63 (74) 97 Room Air 12/07/22 14:40 78 18 98/56 (70) 97 Room Air 12/07/22 14:25 77 18 94/59 (71) 96 Room Air 12/07/22 14:10 87 18 91/57 (68) 96 Room Air 12/07/22 13:55 75 18 99/60 (73) 96 Room Air 12/07/22 13:40 103 18 89/55 (66) 96 Room Air 12/07/22 13:25 101 18 88/58 (68) 96 Room Air 12/07/22 13:10 96 18 101/61 (74) 96 Room Air 12/07/22 12:55 79 18 82/46 (58) 94 Room Air 12/07/22 12:40 77 18 82/50 (61) 94 Room Air 12/07/22 12:25 76 18 84/53 (63) 94 Room Air 12/07/22 12:10 36.6 88 18 87/53 (64) 94 Room Air 12/07/22 11:55 88 18 93/61 (72) 95 Room Air 12/07/22 11:35 92 18 97/56 (70) 95 Room Air 12/07/22 11:30 83 18 104/60 (75) 96 Room Air 12/07/22 11:25 94 18 96/60 (72) 94 Room Air 12/07/22 11:20 86 18 100/58 (72) 96 Room Air 12/07/22 11:15 90 18 99/60 (73) 96 Room Air 12/07/22 11:10 111 18 100/60 (73) 97 Room Air 12/07/22 11:05 98 18 90/54 (66) 96 Room Air 12/07/22 11:00 80 18 88/51 (63) 97 Room Air 12/07/22 10:55 69 18 91/53 (66) 98 Room Air 12/07/22 10:50 96 18 100/55 (70) 97 Room Air 12/07/22 10:45 97 18 97/55 (69) 96 Room Air 12/07/22 10:40 98 18 84/54 (64) 97 Room Air 12/07/22 10:35 99 18 91/53 (66) 97 Room Air 12/07/22 10:30 95 18 97/52 (67) 96 Room Air 12/07/22 10:25 93 18 99/58 (72) 96 Room Air 12/07/22 10:20 96 18 99/56 (70) 96 Room Air 12/07/22 10:18 98 18 106/72 (83) Room Air 12/07/22 10:17 88 18 104/68 (80) Room Air 12/07/22 10:15 90 18 110/72 (85) Room Air 12/07/22 10:10 95 18 114/75 (88) 98 Room Air 12/07/22 10:00 36.4 83 18 99/58 (72) 98 Room Air 12/07/22 09:30 84 18 95/57 (70) Room Air 12/07/22 09:15 88 18 96/57 (70) Room Air 12/07/22 09:00 36.3 92 18 96/59 (71) Room Air 12/07/22 08:45 96 18 108/56 (73) Room Air 12/07/22 08:30 112 18 96/59 (71) Room Air 12/07/22 08:15 101 18 95/55 (68) Room Air 12/07/22 08:00 115 18 94/56 (69) 96 Room Air 12/07/22 07:50 101 18 101/59 (73) Room Air 12/07/22 07:20 36.1 89 18 98/59 (72) Room Air 12/07/22 06:55 36.5 99 18 96 Room Air Labs Laboratory Tests 12/07/22 06:35: Urine Color YELLOW, Urine Clarity CLOUDY, Urine pH 6.0, Urine Specific [place] 1.025H, Urine Protein TRACEH, Urine Glucose (UA) NEGATIVE, Urine Ketones 1+H, Urine Nitrite NEGATIVE, Urine Bilirubin 1+H, Urine Urobilinogen 1.0, Urine Leukocyte Esterase 2+H, Urine RBC (Auto) NEGATIVE, Urine RBC RARE, Urine WBC 10- 25H, Urine Squamous Epithelial Cells 10-25H, Urine Crystals NONE, Urine Bacteria LARGEH, Urine Casts NONE, Urine Mucus NEGATIVE, Urine Culture Indicated YES 12/07/22 06:45: White Blood Count 8.9, Red Blood Count 3.69L, Hemoglobin 11.4L, Hematocrit 33L, Mean Corpuscular Volume 90, Mean Corpuscular Hemoglobin 31, Mean Corpuscular Hemoglobin Concent 34, Red Cell Distribution Width 15.6H, Platelet Count 206, Mean Platelet Volume 10.2, Immature Granulocyte % (Auto) 1, Neutrophils (%) (Auto) 76H, Lymphocytes (%) (Auto) 17, Monocytes (%) (Auto) 6, Eosinophils (%) (Auto) 0, Basophils (%) (Auto) 0, Neutrophils # (Auto) 6.7, Lymphocytes # (Auto) 1.5, Monocytes # (Auto) 0.6, Eosinophils # (Auto) 0.0, Basophils # (Auto) 0.0, Immature Granulocyte # (Auto) 0.0, Glucose Level 102, Syphilis Total Antibody Negative 12/07/22 08:38: Glucometer 143H 12/07/22 11:03: Glucometer 93 12/07/22 16:10: Glucometer 65L 12/07/22 17:20: Glucometer 96 12/07/22 18:46: Glucometer 103 REBECCA PIRERE MD Dec 07, 2022 20:05
[2022-12-07] MEDS ORDERED: WITCH HAZEL(TUCKS) 40 EA JAR TOP PRN (20:15)
[2022-12-07] MEDS ORDERED: BENZOCAINE/MENTHOL (DERMOPLAST) 56 ML CAN TP PRN (20:15)
[2022-12-07] MEDS ORDERED: TETANUS,DIPTH,PERTUSS P/F (BOOSTRIX) 0.5 ML VIAL IM ONE (20:15)
[2022-12-07] MEDS ORDERED: IBUPROFEN 600 MG (MOTRIN) TAB PO ONE (22:03)
[2022-12-07] MEDS: IBUPROFEN 600 MG (MOTRIN) TAB PO SCH (22:05)
[2022-12-08 02:02] VITALS: BP 102/64
[2022-12-08] MEDS: IBUPROFEN 600 MG (MOTRIN) TAB PO SCH ×4 (04:16→21:47)
[2022-12-08 05:33] VITALS: BP 97/61
[2022-12-08 05:54] LABS: BASOPHILS % (AUTO) 0 % (0-10); EOSINOPHILS % (AUTO) 0 % (0-10); HEMATOCRIT 31 % (35-52); HEMOGLOBIN 10.4 g/dL (11.5-16.0); LYMPHOCYTES # (AUTO) 1.3 10^3/uL (1.0-4.0); LYMPHOCYTES % (AUTO) 15 % (12-44); MEAN CORPUSCULAR HEMOGLOBIN 31 pg (25-34); MEAN CORPUSCULAR HGB CONC 34 g/dL (32-36); MEAN CORPUSCULAR VOLUME 91 fL (80-99); MEAN PLATELET VOLUME 10.2 fL (9.0-12.2); MONOCYTES # (AUTO) 0.5 10^3/uL (0.0-1.0); MONOCYTES % (AUTO) 6 % (0-12); NEUTROPHILS # (AUTO) 6.8 10^3/uL (1.8-7.8); NEUTROPHILS % (AUTO) 78 % (42-75); PLATELET COUNT 159 10^3/uL (130-400); WHITE BLOOD COUNT 8.7 10^3/uL (4.3-11.0)
[2022-12-08] MEDS: DOCUSATE SODIUM 100 MG (COLACE) CAP PO SCH ×3 (07:24→21:47)
[2022-12-08] MEDS: CATHETER FLUSH 10 ML SYR IV SCH ×2 (07:25→10:44)
[2022-12-08] MEDS: PRENATAL VITAMIN 1 EA TAB PO SCH (07:50)
[2022-12-08 07:52] VITALS: BP 97/53
[2022-12-08] MEDS ORDERED: RHO(D) IMMUNE GLOBULIN 300 MCG/2 ML SYRINGE IM/IV ONE (09:00)
--- NOTE | 2022-12-08 10:19 | Postpartum Progress Note ---
Note Note Day # 1 Subjective: Patient is without complaints. Ambulating, voiding. Tolerating a regular diet without nausea or vomiting. Normal lochia. Pain is well controlled with oral pain medications. Bottle feeding. Objective: Physical Exam: General - Alert and oriented, no apparent distress Abdomen - Soft, appropriately tender to palpation, non-distended, fundus firm at umbilicus Extremities - no edema, negative Marcia's bilaterally Assessment: 22 yo G2 now P2 mother post- day # 1, status post spontaneous vaginal delivery @ 38 weeks gestation. Recovering well, hemodynamically stable GDM, diet controlled Asymptomatic anemia of acute blood loss Plan: Routine care. Bottle feeding Encourage ambulation. Ferrous sulfate supplementation. Plan for discharge tomorrow with roseline Hwang in 6 weeks Vitals - Labs Vital Signs - I&O Vital Signs Date Time Temp Pulse Resp B/P (MAP) Pulse Ox O2 Delivery O2 Flow Rate FiO2 12/08/22 07:52 35.9 69 16 97/53 (68) 97 Room Air 12/08/22 05:33 35.9 60 16 97/61 (73) 97 Room Air 12/08/22 02:02 36.0 80 16 102/64 (77) 98 Room Air 12/07/22 21:50 98 18 103/55 (71) Room Air 12/07/22 21:35 93 18 110/59 (76) Room Air 12/07/22 21:20 83 18 112/60 (77) Room Air 12/07/22 21:05 73 18 110/55 (73) Room Air 12/07/22 20:50 75 18 121/63 (82) Room Air 12/07/22 20:35 68 18 118/65 (82) Room Air 12/07/22 20:20 82 18 108/58 (75) Room Air 12/07/22 20:06 82 18 130/58 (82) Room Air 12/07/22 19:35 87 18 131/81 (98) 99 Room Air 12/07/22 19:21 82 18 114/77 (89) 99 Room Air 12/07/22 19:10 77 18 112/73 (86) 99 Room Air 12/07/22 18:55 83 18 109/71 (84) 99 Room Air 12/07/22 18:40 81 18 111/72 (85) 99 Room Air 12/07/22 18:25 88 18 111/70 (84) 99 Room Air 12/07/22 18:10 36.3 95 18 116/69 (85) 100 Room Air 12/07/22 17:55 88 18 114/61 (78) 96 Room Air 12/07/22 17:40 86 18 117/66 (83) 99 Room Air 12/07/22 17:25 87 18 104/70 (81) 98 Room Air 12/07/22 17:10 81 18 111/72 (85) 97 Room Air 12/07/22 16:55 82 18 116/66 (83) 97 Room Air 12/07/22 16:40 97 18 99/59 (72) 98 Room Air 12/07/22 16:25 86 18 108/60 (76) 97 Room Air 12/07/22 16:10 36.2 85 18 104/57 (73) 97 Room Air 12/07/22 15:55 83 18 101/68 (79) 97 Room Air 12/07/22 15:40 80 18 87/50 (62) 97 Room Air 12/07/22 15:25 81 18 102/58 (73) 97 Room Air 12/07/22 15:10 90 18 100/59 (73) 96 Room Air 12/07/22 14:55 36.1 79 18 96/63 (74) 97 Room Air 12/07/22 14:40 78 18 98/56 (70) 97 Room Air 12/07/22 14:25 77 18 94/59 (71) 96 Room Air 12/07/22 14:10 87 18 91/57 (68) 96 Room Air 12/07/22 13:55 75 18 99/60 (73) 96 Room Air 12/07/22 13:40 103 18 89/55 (66) 96 Room Air 12/07/22 13:25 101 18 88/58 (68) 96 Room Air 12/07/22 13:10 96 18 101/61 (74) 96 Room Air 12/07/22 12:55 79 18 82/46 (58) 94 Room Air 12/07/22 12:40 77 18 82/50 (61) 94 Room Air 12/07/22 12:25 76 18 84/53 (63) 94 Room Air 12/07/22 12:10 36.6 88 18 87/53 (64) 94 Room Air 12/07/22 11:55 88 18 93/61 (72) 95 Room Air 12/07/22 11:35 92 18 97/56 (70) 95 Room Air 12/07/22 11:30 83 18 104/60 (75) 96 Room Air 12/07/22 11:25 94 18 96/60 (72) 94 Room Air 12/07/22 11:20 86 18 100/58 (72) 96 Room Air 12/07/22 11:15 90 18 99/60 (73) 96 Room Air 12/07/22 11:10 111 18 100/60 (73) 97 Room Air 12/07/22 11:05 98 18 90/54 (66) 96 Room Air 12/07/22 11:00 80 18 88/51 (63) 97 Room Air 12/07/22 10:55 69 18 91/53 (66) 98 Room Air 12/07/22 10:50 96 18 100/55 (70) 97 Room Air 12/07/22 10:45 97 18 97/55 (69) 96 Room Air 12/07/22 10:40 98 18 84/54 (64) 97 Room Air 12/07/22 10:35 99 18 91/53 (66) 97 Room Air 12/07/22 10:30 95 18 97/52 (67) 96 Room Air 12/07/22 10:25 93 18 99/58 (72) 96 Room Air 12/07/22 10:20 96 18 99/56 (70) 96 Room Air 12/07/22 10:18 98 18 106/72 (83) Room Air 12/07/22 10:17 88 18 104/68 (80) Room Air I & O 12/08/22 07:00 Intake Total 1850 ml Balance 1850 ml Labs Laboratory Tests 12/07/22 11:03: Glucometer 93 12/07/22 16:10: Glucometer 65L 12/07/22 17:20: Glucometer 96 12/07/22 18:46: Glucometer 103 12/08/22 05:25: White Blood Count 8.7, Red Blood Count 3.40L, Hemoglobin 10.4L, Hematocrit 31L, Mean Corpuscular Volume 91, Mean Corpuscular Hemoglobin 31, Mean Corpuscular Hemoglobin Concent 34, Red Cell Distribution Width 15.3H, Platelet Count 159, Mean Platelet Volume 10.2, Immature Granulocyte % (Auto) 1, Neutrophils (%) (Auto) 78H, Lymphocytes (%) (Auto) 15, Monocytes (%) (Auto) 6, Eosinophils (%) (Auto) 0, Basophils (%) (Auto) 0, Neutrophils # (Auto) 6.8, Lymphocytes # (Auto) 1.3, Monocytes # (Auto) 0.5, Eosinophils # (Auto) 0.0, Basophils # (Auto) 0.0, Immature Granulocyte # (Auto) 0.0, Glucose Level 103 Microbiology 12/07/22 Urine Culture - Final, Complete Growth Consistent WAI WILSON MD Dec 08, 2022 10:19
[2022-12-08] MEDS: FERROUS SULF 325 MG (IRON) TAB PO SCH (10:21)
[2022-12-08 11:35] VITALS: BP 94/56
[2022-12-08 16:15] VITALS: BP 104/67
[2022-12-08 21:47] VITALS: BP 102/63
[2022-12-08] MEDS ORDERED: ACETAMINOPHEN 500 MG TAB (TYLENOL) ONE (21:57)
[2022-12-08] MEDS ORDERED: ACETAMINOPHEN 500 MG TAB (TYLENOL) PO PRN (22:00)
[2022-12-09] MEDS: IBUPROFEN 600 MG (MOTRIN) TAB PO SCH (03:59)
[2022-12-09 04:02] VITALS: BP 112/68
[2022-12-09] MEDS: FERROUS SULF 325 MG (IRON) TAB PO SCH (08:59)
[2022-12-09] MEDS: DOCUSATE SODIUM 100 MG (COLACE) CAP PO SCH (08:59)
[2022-12-09] MEDS: PRENATAL VITAMIN 1 EA TAB PO SCH (08:59)
[2022-12-09 09:00] VITALS: BP 90/55
[2022-12-09] MEDS ORDERED: IBUP-844 PO (10:11)
--- NOTE | 2022-12-09 10:16 | Short Stay Summary ---
Discharge Summary Hospital Course Problems/Dx: (1) Gestational diabetes Status: Acute Assessment & Plan: BS controlled. DC Metformin on discharge and follow up for glucose screening in 3 months. Qualifiers: Qualified Codes: O24.415 - Gestational diabetes mellitus in , controlled by oral hypoglycemic drugs (2) Rh negative status during Status: Acute Assessment & Plan: Rhogam given Blood type AB neg, A+ Qualifiers: Qualified Codes: O26.893 - Other specified related conditions, third trimester; Z67.91 - Unspecified blood type, rh negative (3) GBS (group B Streptococcus carrier), +RV culture, currently Status: Acute Assessment & Plan: Adequate treatment during labor. Final Diagnosis: see Problem List Hospital Course Date of Admission: Dec 07, 2022 at 06:22 Admission Diagnosis : 1. 38wk GA 2. Gestational DM 3. GBS+ 4. RH negative Family Physician/Provider: Jaiden Date of Discharge: 12/09/22 Discharge Diagnosis: 1. 38wk GA 2. Gestational DM 3. GBS+ 4. RH negative Hospital Course: Routine care. See Problem List Labs and Pending Lab Test: Microbiology 12/07/22 Urine Culture - Final, Complete Growth Consistent Medications: Prescription for ibuprofen 600mg every 6 hours as needed for pain/cramping Continue vitamin Discontinue: Ferrous Sulfate (iron) Metformin Assessment/Pt Instructions Follow up with Dr. Hwang in 6wk Discharge Instructions Discharge Diet: No Restrictions Activity as Tolerated: Yes Discharge Physical Examination General Appearance: Alert, Oriented X3, Cooperative Psych/Mental Status: Mental Status NL, Mood NL Allergies: Coded Allergies: No Known Drug Allergies (Unverified , 12/20/20) Discharge Summary Date of Admission Dec 07, 2022 at 06:22 Date of Discharge Discharge Diagnosis (1) Gestational diabetes Status: Acute Assessment & Plan: Check glucose on admit, and as needed. Qualifiers: Qualified Codes: O24.415 - Gestational diabetes mellitus in , controlled by oral hypoglycemic drugs (2) Rh negative status during Status: Acute Assessment & Plan: Rhogam potpartum depending on blood type Qualifiers: Qualified Codes: O26.893 - Other specified related conditions, third trimester; Z67.91 - Unspecified blood type, rh negative (3) GBS (group B Streptococcus carrier), +RV culture, currently Status: Acute Assessment & Plan: CHANDAN West DO Dec 09, 2022 10:16
[2022-12-09 14:23] VITALS: BP 90/55
== END 2022-12-09 14:27 | disposition home or self-care (01) | DRG 806 ==
LOC: LDRP 12-07 06:22
PROVIDERS: ADMIT Family Medicine; ATTEND Family Medicine
PROC: 10E0XZZ Delivery of Products of Conception, External Approach (ICD-10-PCS; principal; 2022-12-07)
PROC: 3E033VJ Introduction of Other Hormone into Peripheral Vein, Percutaneous Approach (ICD-10-PCS; 2022-12-07)
DX: O24.425 Gestational diabetes mellitus in childbirth, controlled by oral hypoglycemic drugs (principal); D62 Acute posthemorrhagic anemia; Z37.0 Single live birth; Z3A.38 38 weeks gestation of pregnancy; O99.824 Streptococcus B carrier state complicating childbirth; Z87.891 Personal history of nicotine dependence; O90.81 Anemia of the puerperium
CPT/HCPCS: 36415; 81000; 82947; 83033; 85025; 86780; 86850; 86900; 86901; 87088